=== PATIENT | female | born 2000 | race Caucasian/White ===

== ENCOUNTER 2024-05-15 10:10 | Emergency (ER) | payer BC ==
[~2024-05-15] VITALS: Ht 154.9 cm; Wt 105.7 kg
[2024-05-15 10:11] VITALS: BP 135/87; PULSE 18; PULSE 78; RESP 20; TEMP 98.8; O2SAT 93
[2024-05-15 10:30] VITALS: O2SAT 93
[2024-05-15] MEDS: ONDANSETRON 4 MG ODT PO ONE (10:50)
[2024-05-15] MEDS: KETOROLAC 60 MG/2 ML VIAL IM ONE (11:11)
[2024-05-15 11:18] LABS: BILIRUBIN,URINE NEGATIVE (NEGATIVE); BLOOD, URINE NEGATIVE (NEGATIVE); COLOR,URINE YELLOW (YELLOW); LEUKOCYTE ESTERASE ,URINE NEGATIVE (NEGATIVE); NITRITE, URINE NEGATIVE (NEGATIVE); PH,URINE 8.5 (5.0-9.0); PROTEIN,URINE TRACE (NEGATIVE); UGLUCOSE NEGATIVE (NEGATIVE); UROBILINOGEN,URINE 0.2 EU/dL (0.2 - 1)
[2024-05-15 11:25] LABS: APPEARANCE,URINE SLIGHTLY HAZY (CLEAR); RBC,URINE 0-5 /HPF (0-5); WBC,URINE 0-5 /HPF (0-5)
[2024-05-15 11:26] LABS: BACTERIA,URINE FEW /HPF (None Seen)
[2024-05-15] MEDS ORDERED: IBUP-2213 PO (11:35)
[2024-05-15] MEDS ORDERED: ONDA8TAB87 PO (11:35)
== END 2024-05-15 11:42 | disposition home or self-care (01) ==
LOC: MED 10:10
DX: R11.2 Nausea with vomiting, unspecified (principal); R51.9 Headache, unspecified; F17.200 Nicotine dependence, unspecified, uncomplicated; J45.909 Unspecified asthma, uncomplicated
CPT/HCPCS: 81001; 81025; 96372; 99283; J1885; Q0162